=== PATIENT | female | born 1960 | race Caucasian/White ===

== ENCOUNTER 2020-04-13 18:37 | Inpatient (IN) | payer OTHER ==
[~2020-04-13] VITALS: Ht 165.1 cm; Wt 93.0 kg
--- OUTSIDE RECORDS SUMMARY | ~2020-04-13 | XMS | Encounter Summary ---
Demographics + + + | Address | [address] | | | [place] [address] | + + + | Home Phone | | + + + | Preferred Language | Unknown | + + + | Marital Status | | + + + | Christian Affiliation | Unknown | + + + | Race | Unknown | + + + | Ethnic Group | Unknown | + + + Author + + + | Author | [facility] | | | and [place] | + + + | Organization | [facility] | | | and [place] | + + + | Address | Unknown | + + + | Phone | Unavailable | + + + Support + + +---------+ + | Name | Relationship | Address | Phone | + + +---------+ + | Kavin Dos Santos | ECON | Unknown | | + + +---------+ + Care Team Providers + +------+ + | Care Meat Passer Name | Role | Phone | + +------+ + PCP | Unavailable | + +------+ + Encounter Details +--------+ + + + + | Date | Type | Department | Care Team | Description | +--------+ + + + + | 06/11/ | Hospital | [facility] | | | | 2004 | Encounter | MED CTR MP INTRA OP | | | | | | [address] | | | | | | [place] | | | | | | [address] | | | | | | [phone] | | | +--------+ + + + + Social History + +-------+ +--------+------+ | Tobacco Use | Types | Packs/Day | Years | Date | | | | | Used | | + +-------+ +--------+------+ | Never Assessed | | | | | + +-------+ +--------+------+ + + + | Sex Assigned at | Date Recorded | | | | + + + | Not on file | | + + + + + + + | Job Start Date | Occupation | Industry | + + + + | Not on file | Not on file | Not on file | + + + + + + + + | Travel History | Travel Start | Travel End | + + + + + + | No recent travel history available. | + + documented as of this encounter Plan of Treatment Not on filedocumented as of this encounter Visit Diagnoses Not on filedocumented in this encounter"
--- OUTSIDE RECORDS SUMMARY | ~2020-04-13 | XMS | Encounter Summary ---
Demographics + + + | Address | [address] | | | [place] [address] | + + + | Home Phone | | + + + | Preferred Language | Unknown | + + + | Marital Status | | + + + | Mosque Affiliation | Unknown | + + + | Race | Unknown | + + + | Ethnic Group | Unknown | + + + Author + + + | Author | [facility] | | | and [place] | + + + | Organization | [facility] | | | and [place] | [...] Team Providers + +------+ + | Care Skin Tanner Name | Role | Phone | + +------+ + PCP | Unavailable | + +------+ + Encounter Details +--------+ + + + + | Date | Type | Department | Care Team | Description | +--------+ + + + + | 11/22/ | Imaging | [facility] | Provider, | | | 2016 | Exam | MED CTR EXTERNAL | MD [address] | | | | | IMAGING [address] | [address] | | | | | [address] | [place] [address] | | | | | [place] [address] | | | | | | [phone] | | | +--------+ + + + [...] Not on filedocumented as of this encounter Procedures + +--------+ + + + | Procedure Name | Priori | Date/Time | Associated Diagnosis | Comments | | | ty | | | | + +--------+ + + + | YANETH DIGITAL | Routin | 02/13/2007 | | Results for this | | SCREENING BILATERAL | e | 4:05 PM | | procedure are in the | | | | PDT | | results section. | + +--------+ + + + documented in this encounter Results YANETH Digital Screening Bilateral (02/13/2007 4:05 PM PDT) + + | Specimen | + + | | + + + + + | Narrative | Performed At | + + + | External films | [facility] | | for comparison only - no result from [place]. | | + + + + +---------+ + + | Performing | Address | City/State/Zipcode | Phone Number | | Organization | | | | + +---------+ + + | [facility] | | | | + +---------+ + + documented in this encounter Visit Diagnoses Not on filedocumented in this encounter"
--- OUTSIDE RECORDS SUMMARY | ~2020-04-13 | XMS | Encounter Summary ---
Demographics + + + | Address | [address] | | | [place] [address] | + + + | Home Phone | | + + + | Preferred Language | Unknown | + + + | Marital Status | | + + + | Shinto Affiliation | Unknown | + + + | Race | Unknown | + + + | Ethnic Group | Unknown | + + + Author + + + | Author | [facility] | | | and [place] | + + + | Organization | [facility] | | | and [place] [...] Team Providers + +------+ + | Care Adult Parole Officer Name | Role | Phone | + +------+ + | Unknown, Doctor | PCP | | + +------+ + Encounter Details +--------+ + + + + | Date | Type | Department | Care Team | Description | +--------+ + + + + | 11/27/ | Imaging | [facility] | Provider, | | | 2017 | Exam | MED CTR EXTERNAL | MD [address] | | | | | IMAGING [address] | [address] | | | | | [address] | [place] [address] | | | | | [place] [address] | | | | | | [phone] | | | +--------+ + + + [...] + | YANETH DIGITAL | Routin | 09/21/2015 | | Results for this | | SCREENING BILATERAL | e | 3:20 PM | | procedure are in the | | | | PDT | | results section. | + +--------+ + + + documented in this encounter Results YANETH Digital Screening Bilateral (09/21/2015 3:20 PM PDT) + + | Specimen | + + | | + + + + + | Narrative | Performed At | + + + | External films | [facility] | | for comparison only - no result from [place]. | | + + + + +---------+ + + | Performing | Address | City/State/Zipcode | Phone Number | | Organization | | | | + +---------+ + + | [facility] | | | | + +---------+ + + documented in this encounter Visit Diagnoses Not on filedocumented in this encounter"
--- OUTSIDE RECORDS SUMMARY | ~2020-04-13 | XMS | Encounter Summary ---
Demographics + + + | Address | [address] | | | [place] [address] | + + + | Home Phone | | + + + | Preferred Language | Unknown | + + + | Marital Status | | + + + | Gnosticist Affiliation | Unknown | + + + | Race | Unknown | + + + | Ethnic Group | Unknown | + + + Author + + + | Author | [facility] | | | and [place] | + + + | Organization | [facility] | | | and [place] [...] Team Providers + +------+ + | Care Emergency Communications Operator Name | Role | Phone | + [...] | MED CTR EXTERNAL | MD [address] | | | | | IMAGING [address] | [address] | | | | | [address] | [place] [address] | | | | | [place] [address] | | | | | | [phone] | | | +--------+ + + + [...] + | YANETH DIGITAL | Routin | 10/05/2016 | | Results for this | | DIAGNOSTIC RIGHT | e | 10:20 AM | | procedure are in the | | | | PDT | | results section. | + +--------+ + + + documented in this encounter Results YANETH Digital Diagnostic Right (10/05/2016 10:20 AM PDT) + + | Specimen | + + | | + + + + + | Narrative | Performed At | + + + | External films | [facility] | | for comparison only - no result from [place]. | | + + + + +---------+ + + | Performing | Address | City/State/Zipcode | Phone Number | | Organization | | | | + +---------+ + + | [facility] | | | | + +---------+ + + documented in this encounter Visit Diagnoses Not on filedocumented in this encounter"
--- OUTSIDE RECORDS SUMMARY | ~2020-04-13 | XMS | Encounter Summary ---
Demographics + + + | Address | [address] | | | [place] [address] | + + + | Home Phone | | + + + | Preferred Language | Unknown | + + + | Marital Status | | + + + | Bahai Affiliation | Unknown | + + + | Race | Unknown | + + + | Ethnic Group | Unknown | + + + Author + + + | Author | [facility] | | | and [place] | + + + | Organization | [facility] | | | and [place] [...] Team Providers + +------+ + | Care Heading Saw Operator Name | Role | Phone | [...] | MED CTR EXTERNAL | MD [address] | | | | | IMAGING [address] | [address] [address] | | | | | [address] [place] | [place] [address] | | | | | [place] [address] | | | | | | [phone] | | | +--------+ + + + [...] + | YANETH DIGITAL | Routin | 10/10/2015 | | Results for this | | DIAGNOSTIC LEFT | e | 2:45 PM | | procedure are in the | | | | PST | | results section. | + +--------+ + + + documented in this encounter Results YANETH Digital Diagnostic Left (10/10/2015 2:45 PM PST) + + | Specimen | + + | | + + + + + | Narrative | Performed At | + + + | External films | [facility] | | for comparison only - no result from [place]. | | + + + + +---------+ + + | Performing | Address | City/State/Zipcode | Phone Number | | Organization | | | | + +---------+ + + | [facility] | | | | + +---------+ + + documented in this encounter Visit Diagnoses Not on filedocumented in this encounter"
--- OUTSIDE RECORDS SUMMARY | ~2020-04-13 | XMS | Encounter Summary ---
Demographics + + + | Address | [address] | | | [place] [address] | + + + | Home Phone | | + + + | Preferred Language | Unknown | + + + | Marital Status | | + + + | Anglican Affiliation | Unknown | + + + | Race | Unknown | + + + | Ethnic Group | Unknown | + + + Author + + + | Author | [facility] | | | and [place] | + + + | Organization | [facility] | | | and [place] [...] Team Providers + +------+ + | Care Child Welfare Specialist Name | Role | Phone | + [...] | | | | [address] | [place] [address] | | | | | [place] [address] | | | | | | [phone] | | | +--------+ + + + [...] + | YANETH DIGITAL | Routin | 04/23/2008 | | Results for this | | SCREENING BILATERAL | e | 11:20 AM | | procedure are in the | | | | PDT | | results section. | + +--------+ + + + documented in this encounter Results YANETH Digital Screening Bilateral (04/23/2008 11:20 AM PDT) + + | Specimen | + + | | + + + + + | Narrative | Performed At | + + + | External films | [facility] | | for comparison only - no result from [place]. | | + + + + +---------+ + + | Performing | Address | City/State/Zipcode | Phone Number | | Organization | | | | + +---------+ + + | [facility] | | | | + +---------+ + + documented in this encounter Visit Diagnoses Not on filedocumented in this encounter"
--- OUTSIDE RECORDS SUMMARY | ~2020-04-13 | XMS | Encounter Summary ---
Demographics + + + | Address | [address] | | | [place] [address] | + + + | Home Phone | | + + + | Preferred Language | Unknown | + + + | Marital Status | | + + + | Jehovah'S Witness Affiliation | Unknown | + + + | Race | Unknown | + + + | Ethnic Group | Unknown | + + + Author + + + | Author | [facility] | | | and [place] | + + + | Organization | [facility] | | | and [place] [...] Team Providers + +------+ + | Care Control Operator Flow Coat Name | Role | Phone | + [...] | MED CTR EXTERNAL | MD [address] | | | | | IMAGING [address] | [address] | | | | | [address] [place] | [place] [address] | | | | | [place] [address] | | | | | | [phone] | | | +--------+ + + + [...] for comparison only - no result from [place]. | | + + + + +---------+ + + | Performing | Address | City/State/Zipcode | Phone Number | | Organization | | | | + +---------+ + + | [facility] | | | | + +---------+ + + documented in this encounter Visit Diagnoses Not on filedocumented in this encounter"
--- OUTSIDE RECORDS SUMMARY | ~2020-04-13 | XMS | Encounter Summary ---
Demographics + + + | Address | [address] | | | [place] [address] | + + + | Home Phone | | + + + | Preferred Language | Unknown | + + + | Marital Status | | + + + | Uatsdin Affiliation | Unknown | + + + | Race | Unknown | + + + | Ethnic Group | Unknown | + + + Author + + + | Author | [facility] | | | and [place] | + + + | Organization | [facility] | | | and [place] [...] Team Providers + +------+ + | Care Signal Fitter Name | Role | Phone | + [...] | MED CTR EXTERNAL | MD [address] | | | | | IMAGING [address] | [address] | | | | | [address] [place] | [place] [address] | | | | | [place] [address] | | | | | | [phone] | | | +--------+ + + + [...] + | YANETH DIGITAL | Routin | 09/25/2016 | | Results for this | | SCREENING BILATERAL | e | 12:50 PM | | procedure are in the | | | | PDT | | results section. | + +--------+ + + + documented in this encounter Results YANETH Digital Screening Bilateral (09/25/2016 12:50 PM PDT) + + | Specimen | + + | | + + + + + | Narrative | Performed At | + + + | External films | [facility] | | for comparison only - no result from [place]. | | + + + + +---------+ + + | Performing | Address | City/State/Zipcode | Phone Number | | Organization | | | | + +---------+ + + | [facility] | | | | + +---------+ + + documented in this encounter Visit Diagnoses Not on filedocumented in this encounter"
--- OUTSIDE RECORDS SUMMARY | ~2020-04-13 | XMS | Encounter Summary ---
Demographics + + + | Address | [address] | | | [place] [address] | + + + | Home Phone | | + + + | Preferred Language | Unknown | + + + | Marital Status | | + + + | Protestant Affiliation | Unknown | + + + | Race | Unknown | + + + | Ethnic Group | Unknown | + + + Author + + + | Author | [facility] | | | and [place] | + + + | Organization | [facility] | | | and [place] | [...] Team Providers + +------+ + | Care Roustabout Pusher Name | Role | Phone | + [...] | MED CTR EXTERNAL | MD [address] | | | | | IMAGING [address] | [address] [address] | | | | | [address] | [place] [address] | | | | | [place] [address] | | | | | | [phone] | | | +--------+ + + + [...] | + +--------+ + + + | US BREAST LIMITED | Routin | 10/10/2015 | | Results for this | | LEFT | e | 3:25 PM | | procedure are in the | | | | PST | | results section. | + +--------+ + + + documented in this encounter Results US Breast Limited Left (10/10/2015 3:25 PM PST) + + | Specimen | + + | | + + + + + | Narrative | Performed At | + + + | External films | [facility] | | for comparison only - no result from [place]. | | + + + + +---------+ + + | Performing | Address | City/State/Zipcode | Phone Number | | Organization | | | | + +---------+ + + | [facility] | | | | + +---------+ + + documented in this encounter Visit Diagnoses Not on filedocumented in this encounter"
--- OUTSIDE RECORDS SUMMARY | ~2020-04-13 | XMS | Encounter Summary ---
Demographics + + + | Address | [address] | | | [place] [address] | + + + | Home Phone | | + + + | Preferred Language | Unknown | + + + | Marital Status | | + + + | Anabaptist Affiliation | Unknown | + + + | Race | Unknown | + + + | Ethnic Group | Unknown | + + + Author + + + | Author | [facility] | | | and [place] | + + + | Organization | [facility] | | | and [place] [...] Team Providers + +------+ + | Care Box Liner Name | Role | Phone | + [...] | MED CTR EXTERNAL | MD [address] | | | | | IMAGING [address] | [place] [address] | | | | | [address] [place] | [place] [address] | | | | | [place] [address] | | | | | | [phone] | | | +--------+ + + + [...] | US BREAST LIMITED | Routin | 10/05/2016 | | Results for this | | RIGHT | e | 10:45 AM | | procedure are in the | | | | PDT | | results section. | + +--------+ + + + documented in this encounter Results US Breast Limited Right (10/05/2016 10:45 AM PDT) + + | Specimen | + + | | + + + + + | Narrative | Performed At | + + + | External films | [facility] | | for comparison only - no result from [place]. | | + + + + +---------+ + + | Performing | Address | City/State/Zipcode | Phone Number | | Organization | | | | + +---------+ + + | [facility] | | | | + +---------+ + + documented in this encounter Visit Diagnoses Not on filedocumented in this encounter"
--- OUTSIDE RECORDS SUMMARY | ~2020-04-13 | XMS | Encounter Summary ---
Demographics + + + | Address | [address] | | | [place] [address] | + + + | Home Phone | | + + + | Preferred Language | Unknown | + + + | Marital Status | | + + + | Scientologist Affiliation | Unknown | + + + | Race | Unknown | + + + | Ethnic Group | Unknown | + + + Author + + + | Author | [facility] | | | and [place] | + + + | Organization | [facility] | | | and [place] [...] Team Providers + +------+ + | Care Pvc Monitor Name | Role | Phone | + [...] | | [address] | [place] [address] | | | | | [place] [address] | | | | | | [phone] | | | +--------+ + + + [...] for comparison only - no result from [place]. | | + + + + +---------+ + + | Performing | Address | City/State/Zipcode | Phone Number | | Organization | | | | + +---------+ + + | [facility] | | | | + +---------+ + + documented in this encounter Visit Diagnoses Not on filedocumented in this encounter"
--- OUTSIDE RECORDS SUMMARY | ~2020-04-13 | XMS | Encounter Summary ---
Demographics + + + | Address | [address] | | | [place] [address] | + + + | Home Phone | | + + + | Preferred Language | Unknown | + + + | Marital Status | | + + + | Scientology Affiliation | Unknown | + + + | Race | Unknown | + + + | Ethnic Group | Unknown | + + + Author + + + | Author | [facility] | | | and [place] | + + + | Organization | [facility] | | | and [place] | + [...] Team Providers + +------+ + | Care General Labor Forklift Operator Name | Role | Phone | [...] | | [address] | [place] [address] | | | | | [place] [address] | | | | | | [phone] | | | +--------+ + + + [...] + | YANETH DIGITAL | Routin | 02/10/2010 | | Results for this | | SCREENING BILATERAL | e | 1:40 PM | | procedure are in the | | | | PST | | results section. | + +--------+ + + + documented in this encounter Results YANETH Digital Screening Bilateral (02/10/2010 1:40 PM PST) + + | Specimen | + + | | + + + + + | Narrative | Performed At | + + + | External films | [facility] | | for comparison only - no result from [place]. | | + + + + +---------+ + + | Performing | Address | City/State/Zipcode | Phone Number | | Organization | | | | + +---------+ + + | [facility] | | | | + +---------+ + + documented in this encounter Visit Diagnoses Not on filedocumented in this encounter"
--- OUTSIDE RECORDS SUMMARY | ~2020-04-13 | XMS | Encounter Summary ---
Demographics + + + | Address | [address] | | | [place] [address] | + + + | Home Phone | | + + + | Preferred Language | Unknown | + + + | Marital Status | | + + + | Rastafarian Affiliation | Unknown | + + + | Race | Unknown | + + + | Ethnic Group | Unknown | + + + Author + + + | Author | [facility] | | | and [place] | + + + | Organization | [facility] | | | and [place] | [...] Team Providers + +------+ + | Care Education Associate Name | Role | Phone | + [...] | MED CTR EXTERNAL | MD [address] | | | | | IMAGING [address] | [place] | | | | | [address] [place] | [place] [address] | | | | | [place] [address] | | | | | | [phone] | | | +--------+ + + + [...] for comparison only - no result from [place]. | | + + + + +---------+ + + | Performing | Address | City/State/Zipcode | Phone Number | | Organization | | | | + +---------+ + + | [facility] | | | | + +---------+ + + documented in this encounter Visit Diagnoses Not on filedocumented in this encounter"
--- OUTSIDE RECORDS SUMMARY | ~2020-04-13 | XMS | Clinical Summary ---
Demographics + + + | Address | [address] | | | [place] [address] | + + + | Home Phone | | + + + | Preferred Language | Unknown | + + + | Marital Status | | + + + | Lutheran Affiliation | Unknown | + + + | Race | Unknown | + + + | Ethnic Group | Unknown | + + + Author + + + | Author | [facility] | | | and [place] | + + + | Organization | [facility] | | | and [place] [...] Team Providers + +------+ + | Care Electronic Equipment Maint Tech Name | Role | Phone | + +------+ + | Unknown, Doctor | PCP | | + +------+ + Allergies Not on File Medications Not on file Active Problems Not on file Social History + +-------+ +--------+------+ | Tobacco [...] recent travel history available. | + + Last Filed Vital Signs Not on file Plan of Treatment + + + + + | Health Maintenance | Due Date | Last Done | Comments | + + + + + | Vaccine: | | | | | Dtap/Tdap/Td (1 - | 1 | | | | Tdap) | | | | + + + + + | Cervical Cancer | | | | | Screening (Pap) | 0 | | | + + + + + | Vaccine: Zoster (1 | | | | | of 2) | 0 | | | + + + + + | Breast Cancer | | 09/26/2017, 09/25/2016, | | | Screening | 9 | 09/21/2015, Additional history | | | | | exists | | + + + + + | Vaccine: Influenza | | | | | (Season Ended) | 0 | | | + + + + + Results Not on filefrom Last 3 Months Insurance + +--------+ +--------+ +---------+------+ | Payer | Benefi | Subscriber | Effect | Phone | Address | Type | | | t Plan | ID | mya | | | | | | / | | Dates | | | | | | Group | | | | | | + +--------+ +--------+ +---------+------+ | [employer] | HEALTH | [id number] | 07/02/20 | [phone] | | PPO | | | NET | | 14-Pre | 1 | | | | | PPO | | sent | | | | + +--------+ +--------+ +---------+------+ + +--------+ +--------+ + + | Guarantor Name | Accoun | Relation to | Date | Phone | Billing Address | | | t Type | Patient | of | | | | | | | | | | + +--------+ +--------+ + + | Vanessa Dos Santos | Person | Self [birth year] | [address] | | | al/Fam | | 1960 | [phone] | [place] | | | sil | | | [address] (Home) | [phone] | + +--------+ +--------+ + + Advance Directives + + + + + | Type | Date Recorded | Patient | Explanation | | | | Beverage Specialist | | + + + + + | Power of | | | | | Freelance Photographer | | | | + + + + + | Advance | 12/11/2017 8:28 | | | | Directive | AM | | | + + + + +"
--- OUTSIDE RECORDS SUMMARY | ~2020-04-13 | XMS | Encounter Summary ---
Demographics + + + | Address | [address] | | | [place] [address] | + + + | Home Phone | | + + + | Preferred Language | Unknown | + + + | Marital Status | | + + + | Protestant Affiliation | Unknown | + + + | Race | Unknown | + + + | Ethnic Group | Unknown | + + + Author + + + | Author | [facility] | | | and [place] | + + + | Organization | [facility] | | | and [...] Team Providers + +------+ + | Care Engine Tester Name | Role | Phone | + [...] | MED CTR EXTERNAL | MD [address] | | | | | IMAGING [address] | [place] | | | | | [address] [place] | [place] [address] | | | | | [place] [address] | | | | | | [phone] | | | +--------+ + + + [...] + | YANETH DIGITAL | Routin | 08/11/2014 | | Results for this | | SCREENING BILATERAL | e | 10:45 AM | | procedure are in the | | | | PDT | | results section. | + +--------+ + + + documented in this encounter Results YANETH Digital Screening Bilateral (08/11/2014 10:45 AM PDT) + + | Specimen | + + | | + + + + + | Narrative | Performed At | + + + | External films | [facility] | | for comparison only - no result from [place]. | | + + + + +---------+ + + | Performing | Address | City/State/Zipcode | Phone Number | | Organization | | | | + +---------+ + + | [facility] | | | | + +---------+ + + documented in this encounter Visit Diagnoses Not on filedocumented in this encounter"
--- OUTSIDE RECORDS SUMMARY | ~2020-04-13 | XMS | Encounter Summary ---
Demographics + + + | Address | [address] | | | [place] [address] | + + + | Home Phone | | + + + | Preferred Language | Unknown | + + + | Marital Status | | + + + | Orthodox Affiliation | Unknown | + + + | Race | Unknown | + + + | Ethnic Group | Unknown | + + + Author + + + | Author | [facility] | | | and [place] | + + + | Organization | [facility] | | | and Joeyana [...] Team Providers + +------+ + | Care Final Inspector Shuttle Name | Role | Phone | + [...] | MED CTR EXTERNAL | MD Baljit [address] | | | | | IMAGING [address] | [place] | | | | | [address] [place] | [place] [address] | | | | | [place] [address] | | | | | | [phone] | | | +--------+ + + + [...] for comparison only - no result from [place]. | | + + + + +---------+ + + | Performing | Address | City/State/Zipcode | Phone Number | | Organization | | | | + +---------+ + + | [facility] | | | | + +---------+ + + documented in this encounter Visit Diagnoses Not on filedocumented in this encounter"
--- OUTSIDE RECORDS SUMMARY | ~2020-04-13 | XMS | Encounter Summary ---
Demographics + + + | Address | [address] | | | [place] [address] | + + + | Home Phone | | + + + | Preferred Language | Unknown | + + + | Marital Status | | + + + | Uatsdin Affiliation | Unknown | + + + | Race | Unknown | + + + | Ethnic Group | Unknown | + + + Author + + + | Author | [facility] | | | and [place] | + + + | Organization | [facility] | | | and [...] Team Providers + +------+ + | Care Bagel Maker Name | Role | Phone | + [...] | MED CTR EXTERNAL | MD [address]jit [address] | | | | | IMAGING [address] | [place] | | | | | [address] [place] | [place] [address] | | | | | [place] [address] | | | | | | [phone] | | | +--------+ + + + [...] + + documented in this encounter Results YNAETH Digital Screening Bilateral (09/21/2015 3:20 PM PDT) + + | Specimen | + + | | + + + + + | Narrative | Performed At | + + + | External films | [facility] | | for comparison only - no result from [place]. | | + + + + +---------+ + + | Performing | Address | City/State/Zipcode | Phone Number | | Organization | | | | + +---------+ + + | [facility] | | | | + +---------+ + + documented in this encounter Visit Diagnoses Not on filedocumented in this encounter"
--- OUTSIDE RECORDS SUMMARY | ~2020-04-13 | XMS | Encounter Summary ---
Demographics + + + | Address | [address] | | | [place] [address] | + + + | Home Phone | | + + + | Preferred Language | Unknown | + + + | Marital Status | | + + + | Yazidism Affiliation | Unknown | + + + | Race | Unknown | + + + | Ethnic Group | Unknown | + + + Author + + + | Author | [facility] | | | and [place] | + + + | Organization | [facility] | | | and [place] | [...] Team Providers + +------+ + | Care Swatch Cutter Name | Role | Phone | + [...] | MED CTR EXTERNAL | MD [address] | | | | | IMAGING [address] | [place] | | | | | [address] [place] | [place] [address] | | | | | [place] [address] | | | | | | [phone] | | | +--------+ + + + [...] + | YANETH DIGITAL | Routin | 11/12/2017 | | Results for this | | DIAGNOSTIC LEFT | e | 11:05 AM | | procedure are in the | | | | PST | | results section. | + +--------+ + + + documented in this encounter Results YANETH Digital Diagnostic Left (11/12/2017 11:05 AM PST) + + | Specimen | + + | | + + + + + | Narrative | Performed At | + + + | External films | [facility] | | for comparison only - no result from [place]. | | + + + + +---------+ + + | Performing | Address | City/State/Zipcode | Phone Number | | Organization | | | | + +---------+ + + | [facility] | | | | + +---------+ + + documented in this encounter Visit Diagnoses Not on filedocumented in this encounter"
--- OUTSIDE RECORDS SUMMARY | ~2020-04-13 | XMS | Encounter Summary ---
Demographics + + + | Address | [address] | | | [place] [address] | + + + | Home Phone | | + + + | Preferred Language | Unknown | + + + | Marital Status | | + + + | Alevism Affiliation | Unknown | + + + | Race | Unknown | + + + | Ethnic Group | Unknown | + + + Author + + + | Author | [facility] | | | and [place] | + + + | Organization | [facility] | | | and [place] | [...] Team Providers + +------+ + | Care Glass Ribbon Machine Operator Assistant Name | Role | Phone | + [...] | MED CTR EXTERNAL | MD [address] | | | | | IMAGING [address] | [place] | | | | | [address] [place] | [place] [address] | | | | | [place] [address] | | | | | | [phone] | | | +--------+ + + + [...] + | YANETH DIGITAL | Routin | 09/26/2017 | | Results for this | | SCREENING BILATERAL | e | 11:40 AM | | procedure are in the | | | | PDT | | results section. | + +--------+ + + + documented in this encounter Results YANETH Digital Screening Bilateral (09/26/2017 11:40 AM PDT) + + | Specimen | + + | | + + + + + | Narrative | Performed At | + + + | External films | [facility] | | for comparison only - no result from [place]. | | + + + + +---------+ + + | Performing | Address | City/State/Zipcode | Phone Number | | Organization | | | | + +---------+ + + | [facility] | | | | + +---------+ + + documented in this encounter Visit Diagnoses Not on filedocumented in this encounter"
--- OUTSIDE RECORDS SUMMARY | ~2020-04-13 | XMS | Encounter Summary ---
Demographics + + + | Address | [address] | | | [place] [address] | + + + | Home Phone | | + + + | Preferred Language | Unknown | + + + | Marital Status | | + + + | Adventist Affiliation | Unknown | + + + | Race | Unknown | + + + | Ethnic Group | Unknown | + + + Author + + + | Author | [facility] | | | and [place] | + + + | Organization | [facility] | | | and [...] Team Providers + +------+ + | Care Front Office Assistant Name | Role | Phone | + +------+ + | Unknown, Doctor | PCP | | + +------+ + Reason for Referral Diagnostic/Screening (Routine) +--------+--------+ + + + + | Status | Reason | Specialty | Diagnoses / | Referred By | Referred To | | | | | Procedures | Contact | Contact | +--------+--------+ + + + + | Closed | | Radiology | Diagnoses | | [facility] | | | | | Breast | Osmar, | [address] | | | | | density | Ambreen | Domen[place], | | | | | Procedures | Anaya | [place] | | | | | MRI Breast | DO Lenin | [address] | | | | | Bilateral w | [address] | Phone: | | | | | wo Contrast | [address] [place] | [phone] | | | | | | [place], [place] | Fax: | | | | | | [address] | [phone] | | | | | | Phone: | | | | | | | [phone] | | | | | | | Fax: | | | | | | | [phone] | | +--------+--------+ + + + + Reason for Visit Auth/Cert +--------+--------+ + + + + | Status | Reason | Specialty | Diagnoses / | Referred By | Referred To | | | | | Procedures | Contact | Contact | +--------+--------+ + + + + | | | | | | | +--------+--------+ + + + + Encounter Details +--------+ + + + + | Date | Type | Department | Care Team | Description | +--------+ + + + + | 12/11/ | Hospital | [facility] | Ambreen Prasad | Breast density | | 2018 | Encounter | MED CTR MRI [address] | Anaya Phelps DO | | | | | [place], | [address] | | | | | [place] [address] | [place], [place] | | | | | [phone] | [address] | | | | | | | | +--------+ + + + [...] | + +--------+ + + + | MRI BREAST BILATERAL | Routin | 12/11/2017 | Breast density | Results for this | | W WO CONTRAST | e | 9:28 AM | | procedure are in the | | | | PST | | results section. | + +--------+ + + + documented in this encounter Results MRI Breast Bilateral w wo Contrast (12/11/2017 9:28 AM PST) + + | Specimen | + + | | + + + + + | Narrative | Performed At | + + + | BILATERAL BREAST MRI WITH AND WITHOUT CONTRAST, WITH 3-D | [facility] | | REFORMATIONS, GADOLINIUM SUBTRACTION AND COMPUTER ASSISTED DIAGNOSIS, | | | 12/11/2017 8:46 AM CLINICAL HISTORY: Left breast asymmetry on | | | previous mammography without a sonographic correlate. | | | Postmenopausal, not reportedly on hormone replacement therapy. No | | | reported family history of breast cancer. COMPARISON: DIAGNOSTIC | | | LEFT MAMMOGRAM AND LEFT BREAST ULTRASOUND NOVEMBER 12, 2017, | | | BILATERAL DIGITAL SCREENING MAMMOGRAM SEPTEMBER 2017 AND MORE REMOTE | | | EXAMS TECHNIQUE: The patient was imaged in the breast coil in | | | the prone position in the 3T magnet. Axial STIR and T2 sequences | | | were acquired. Axial images were acquired precontrast with | | | sequential dynamic postcontrast acquisitions performed as well | | | following the uneventful intravenous administration of 20 cc | | | Magnevist, including high resolution sagittal views. Postcontrast, | | | subtracted axial images were then acquired with motion registration. | | | Computer assisted diagnosis utilizing CAD stream was performed. | | | Multiplanar MIP reformations were performed. Enhancement curves | | | were acquired over suspicious lesions. FINDINGS: Breast | | | composition is almost entirely fat, with minimal scattered | | | fibroglandular tissue bilaterally. There is minimal background | | | parenchymal enhancement. Within the central, slightly medial aspect | | | of the left breast, there is a 5.5 mm rounded, circumscribed nodule | | | demonstrating central fat signal consistent with the hilum of a lymph | | | node. The lesion demonstrates significant enhancement but is | | | similar in size, morphology and enhancement to a lesion more | | | posterior and lateral in the breast at the same level. These | | | correspond with small rounded asymmetries visible on multiple | | | previous mammograms, and are similar in appearance compared with | | | multiple bilateral axillary lymph nodes. Additional tiny rounded | | | foci of subthreshold and progressive, benign type enhancement are | | | present elsewhere in both breasts. No suspicious mass or | | | architectural distortion is evident. There is no abnormal cutaneous | | | or chest wall enhancement. No morphologically abnormal or | | | suspiciously enhancing axillary or internal mammary lymph node is | | | apparent. A small hiatus hernia is questioned. Imaged | | | intrathoracic and upper abdominal structures are otherwise | | | unremarkable. IMPRESSION - 1. BI-RADS CATEGORY 2, BENIGN | | | FINDINGS (BOTH BREASTS). Two enhancing nodules in the central to | | | lateral left breast demonstrate morphology consistent with | | | intramammary lymph nodes and correspond with stable asymmetries on | | | previous mammography. There is no suspicious mass or other evidence | | | of malignancy in either breast. RECOMMENDATION: Continued | | | screening mammography, due in September 2018. Dictated and Signed | | | by: Sawyer Corrales MD Electronically signed: 12/11/2017 11:45 AM | | + + + + + | Procedure Note | + + | Mike, Rad Results In - 12/11/2017 11:48 AM PST BILATERAL BREAST MRI WITH AND WITHOUT | | CONTRAST, WITH 3-D REFORMATIONS,GADOLINIUM SUBTRACTION AND COMPUTER ASSISTED DIAGNOSIS, | | 12/11/2017 8:46 AMCLINICAL HISTORY: Left breast asymmetry on previous mammography without | | asonographic correlate. Postmenopausal, not reportedly on hormone replacementtherapy. | | No reported family history of breast cancer.COMPARISON: DIAGNOSTIC LEFT MAMMOGRAM AND | | LEFT BREAST ULTRASOUND November, BILATERAL DIGITAL SCREENING MAMMOGRAM SEPTEMBER | | 2016 AND MORE REMOTE EXAMS TECHNIQUE: The patient was imaged in the breast coil in the | | prone position inthe 3T magnet. Axial STIR and T2 sequences were acquired. Axial | | images wereacquired precontrast with sequential dynamic postcontrast acquisitions | | performedas well following the uneventful intravenous administration of 20 cc | | Magnevist,including high resolution sagittal views. Postcontrast, subtracted axial | | imageswere then acquired with motion registration. Computer assisted diagnosisutilizing | | CAD stream was performed. Multiplanar MIP reformations wereperformed. Enhancement | | curves were acquired over suspicious lesions.FINDINGS: Breast composition is almost | | entirely fat, with minimal scatteredfibroglandular tissue bilaterally. There is minimal | | background parenchymalenhancement. Within the central, slightly medial aspect of the | | left breast,there is a 5.5 mm rounded, circumscribed nodule demonstrating central fat | | signalconsistent with the hilum of a lymph node. The lesion demonstrates | | significantenhancement but is similar in size, morphology and enhancement to a lesion | | moreposterior and lateral in the breast at the same level. These correspond withsmall | | rounded asymmetries visible on multiple previous mammograms, and aresimilar in | | appearance compared with multiple bilateral axillary lymph nodes. Additional tiny | | rounded foci of subthreshold and progressive, benign typeenhancement are present | | elsewhere in both breasts. No suspicious mass orarchitectural distortion is evident. | | There is no abnormal cutaneous or chestwall enhancement. No morphologically abnormal or | | suspiciously enhancingaxillary or internal mammary lymph node is apparent. A small | | hiatus hernia isquestioned. Imaged intrathoracic and upper abdominal structures are | | otherwiseunremarkable.IMPRESSION -1. BI-RADS CATEGORY 2, BENIGN FINDINGS (BOTH | | BREASTS). Two enhancing nodulesin the central to lateral left breast demonstrate | | morphology consistent withintramammary lymph nodes and correspond with stable | | asymmetries on previousmammography. There is no suspicious mass or other evidence of | | malignancy ineither breast. RECOMMENDATION: Continued screening mammography, due in | | September 2018.Dictated and Signed by: Sawyer Corrales MD Electronically signed: 12/11/2017 | | 11:45 AM | |unremarkable. | | | |IMPRESSION - | |1. BI-RADS CATEGORY 2, BENIGN FINDINGS (BOTH BREASTS). Two enhancing nodules | |in the central to lateral left breast demonstrate morphology consistent with | |intramammary lymph nodes and correspond with stable asymmetries on previous | |mammography. There is no suspicious mass or other evidence of malignancy in | |either breast. | | | |RECOMMENDATION: Continued screening mammography, due in September 2018. | | | |Dictated and Signed by: Sawyer Corrales MD | | Electronically signed: 12/11/2017 11:45 AM | + + + +---------+ + + | Performing | Address | City/State/Zipcode | Phone Number | | Organization | | | | + +---------+ + + | [facility] | | | | + +---------+ + + documented in this encounter Visit Diagnoses + + | Diagnosis | + + | Breast density Other sign and symptom in breast | + + documented in this encounter Administered Medications + +--------+ +--------+------+------+ | Medication Order | MAR | Action | Dose | Rate | Site | | | Action | Date | | | | + +--------+ +--------+------+------+ | gadopentetate (MAGNEVIST) | Given | 12/11/19 | 20 mLs | | | | injection 20 mL 20 mL, | | 18 9:18 | | | | | Intravenous, ONCE PRN, Other, | | AM PST | | | | | Starting 12/11/17 at 0917, For | | | | | | | 1 dose, MRI | | | | | | + +--------+ +--------+------+------+ +---+---+ | | | +---+---+ documented in this encounter"
--- OUTSIDE RECORDS SUMMARY | ~2020-04-13 | XMS | Encounter Summary ---
Demographics + + + | Address | [address] | | | [place] [address] | + + + | Home Phone | | + + + | Preferred Language | Unknown | + + + | Marital Status | | + + + | Mu-Ism Affiliation | Unknown | + + + | Race | Unknown | + + + | Ethnic Group | Unknown | + + + Author + + + | Author | [facility] | | | and [place] | + + + | Organization | [facility] | | | and [place] [...] Team Providers + +------+ + | Care Shot Hole Driller Name | Role | Phone | + [...] | | KAYLA LIVE | [place] [address] | | | | | [place] [address] | | | | | | [phone] | | | +--------+ + + + [...] for comparison only - no result from [place]. | | + + + + +---------+ + + | Performing | Address | City/State/Zipcode | Phone Number | | Organization | | | | + +---------+ + + | [facility] | | | | + +---------+ + + documented in this encounter Visit Diagnoses Not on filedocumented in this encounter"
--- OUTSIDE RECORDS SUMMARY | ~2020-04-13 | XMS | Encounter Summary ---
Demographics + + + | Address | [address] | | | [place] [address] | + + + | Home Phone | | + + + | Preferred Language | Unknown | + + + | Marital Status | | + + + | Denominational Affiliation | Unknown | + + + | Race | Unknown | + + + | Ethnic Group | Unknown | + + + Author + + + | Author | [facility] | | | and [place] | + + + | Organization | [facility] | | | and [...] Team Providers + +------+ + | Care Client Service Supervisor Name | Role | Phone | + [...] | | KAYLA LIVE | [place] [address] | | | | | [place] [address] | | | | | | [phone] | | | +--------+ + + + [...] for comparison only - no result from [place]. | | + + + + +---------+ + + | Performing | Address | City/State/Zipcode | Phone Number | | Organization | | | | + +---------+ + + | [facility] | | | | + +---------+ + + documented in this encounter Visit Diagnoses Not on filedocumented in this encounter"
--- OUTSIDE RECORDS SUMMARY | ~2020-04-13 | XMS | Encounter Summary ---
Demographics + + + | Address | [address] | | | [place] [address] | + + + | Home Phone | | + + + | Preferred Language | Unknown | + + + | Marital Status | | + + + | Taoism Affiliation | Unknown | + + + | Race | Unknown | + + + | Ethnic Group | Unknown | + + + Author + + + | Author | [facility] | | | and [place] | + + + | Organization | [facility] | | [...] Team Providers + +------+ + | Care Maintenance Operator Name | Role | Phone | [...] | MED CTR EXTERNAL | MD [address] | | | | | IMAGING [address] | [place] | | | | | [address] [place] | [place] [address] | | | | | [place] [address] | | | | | | [phone] | | | +--------+ + + + [...] for comparison only - no result from [place]. | | + + + + +---------+ + + | Performing | Address | City/State/Zipcode | Phone Number | | Organization | | | | + +---------+ + + | [facility] | | | | + +---------+ + + documented in this encounter Visit Diagnoses Not on filedocumented in this encounter"
--- OUTSIDE RECORDS SUMMARY | ~2020-04-13 | XMS | Encounter Summary ---
Demographics + + + | Address | [address] | | | [place] [address] | + + + | Home Phone | | + + + | Preferred Language | Unknown | + + + | Marital Status | | + + + | Sabianism Affiliation | Unknown | + + + | Race | Unknown | + + + | Ethnic Group | Unknown | + + + Author + + + | Author | [facility] | | | and [place] | + + + | Organization | [facility] | | | and [place] | [...] Team Providers + +------+ + | Care Benefits Analyst Name | Role | Phone | + [...] | Breast | Osmar, | [address] | | | | | density | Ambreen | [place], | | | | | Procedures | Anaya | [place] | | | | | MRI Breast | DO Lenin | [address] | | | | | Bilateral w | [address] | Phone: | | | | | wo Contrast | [address] [place] | [phone] | | | | | | [place], [place] | Fax: | | | | | | [address] | [phone] | | | | | | Phone: | | | | | | | [phone] | | | | | | | Fax: | | | | | | | [phone] | | +--------+--------+ + + + + [...] + + | 12/11/ | Hospital | [facility] | Ambreen Prasad | Breast density | | 2018 | Encounter | MED CTR MRI [address] | Anaya Phelps DO | | | | | [place], | [address] | | | | | [place] [address] | [place], [place] | | | | | [phone] | [address] | | | | | [...]
--- OUTSIDE RECORDS SUMMARY | ~2020-04-13 | XMS | Clinical Summary ---
Demographics + + + | Address | [address] | | | [place] [address] | + + + | Home Phone | | + + + | Preferred Language | Unknown | + + + | Marital Status | | + + + | Faith Affiliation | Unknown | + + + | Race | Unknown | + + + | Ethnic Group | Unknown | + + + Author + + + | Author | [facility] | | | and [place] | + + + | Organization | [facility] | | | and [...] Team Providers + +------+ + | Care Patient Safety Officer Name | Role | Phone | [...] +--------+ +---------+------+ | [employer] | HEALTH | [id number] | 07/02/20 | [phone] | | PPO [...] sil | | | 2 (Home) | [address] | + +--------+ +--------+ + + Advance Directives + + + + + | Type | Date Recorded | Patient | Explanation | | | | Pediatric Lpn | | + + + + + | Power of | | | | | Registered Safety Engineer | | | | + + + + + | Advance | 12/11/2017 8:28 | | | | Directive | AM | | | + + + + +"
--- OUTSIDE RECORDS SUMMARY | ~2020-04-13 | XMS | Encounter Summary ---
Demographics + + + | Address | [address] | | | [place] [address] | + + + | Home Phone | | + + + | Preferred Language | Unknown | + + + | Marital Status | | + + + | Mandaeism Affiliation | Unknown | + + + | Race | Unknown | + + + | Ethnic Group | Unknown | + + + Author + + + | Author | [facility] | | | and [place] | + + + | Organization | [facility] | | [...] Providers + +------+ + | Care Child Day Care Teacher Name | Role | Phone | + +------+ + PCP | Unavailable | + +------+ + Encounter Details +--------+ + + + + | Date | Type | Department | Care Team | Description | +--------+ + + + + | 06/11/ | Hospital | [facility] | | | | 2004 | Encounter | MED CTR MP INTRA OP | | | | | | [address] | | | | | | [place] | | | | | | [address] | | | | | | [phone] | | | +--------+ + + + [...]
--- OUTSIDE RECORDS SUMMARY | ~2020-04-13 | XMS | Encounter Summary ---
Demographics + + + | Address | [address] | | | [place] [address] | + + + | Home Phone | | + + + | Preferred Language | Unknown | + + + | Marital Status | | + + + | Jew Affiliation | Unknown | + + + | Race | Unknown | + + + | Ethnic Group | Unknown | + + + Author + + + | Author | [facility] | | | and [place] | + + + | Organization | [facility] | | | and [...] Team Providers + +------+ + | Care Soil Field Technician Name | Role | Phone | + [...] | MED CTR EXTERNAL | MD [address] | | | | | IMAGING [address] | [place] | | | | | [address] [place] | [place] [address] | | | | | [place] [address] | | | | | | [phone] | | | +--------+ + + + [...] for comparison only - no result from [place]. | | + + + + +---------+ + + | Performing | Address | City/State/Zipcode | Phone Number | | Organization | | | | + +---------+ + + | [facility] | | | | + +---------+ + + documented in this encounter Visit Diagnoses Not on filedocumented in this encounter"
--- OUTSIDE RECORDS SUMMARY | ~2020-04-13 | XMS | Encounter Summary ---
Demographics + + + | Address | [address] | | | [place] [address] | + + + | Home Phone | | + + + | Preferred Language | Unknown | + + + | Marital Status | | + + + | Sikhism Affiliation | Unknown | + + + | Race | Unknown | + + + | Ethnic Group | Unknown | + + + Author + + + | Author | [facility] | | | and Joeyana | + + + | Organization | [facility] | | | and Joeyana [...] Team Providers + +------+ + | Care Ginning Operator Name | Role | Phone | [...] | MED CTR EXTERNAL | MD [address] | | | | | IMAGING [address] | [place] | | | | | [address] | [place] [address] | | | | | [place] [address] | | | | | | [phone] | | | +--------+ + + + [...] for comparison only - no result from [place]. | | + + + + +---------+ + + | Performing | Address | City/State/Zipcode | Phone Number | | Organization | | | | + +---------+ + + | [facility] | | | | + +---------+ + + documented in this encounter Visit Diagnoses Not on filedocumented in this encounter"
--- OUTSIDE RECORDS SUMMARY | ~2020-04-13 | XMS | Encounter Summary ---
Demographics + + + | Address | [address] | | | [place] [address] | + + + | Home Phone | | + + + | Preferred Language | Unknown | + + + | Marital Status | | + + + | Hinduism Affiliation | Unknown | + + + | Race | Unknown | + + + | Ethnic Group | Unknown | + + + Author + + + | Author | [facility] | | | and Joeyana | + + + | Organization | [facility] | | | and [...] Providers + +------+ + | Care Control Room Supervisor Name | Role | Phone | [...] | MED CTR EXTERNAL | MD [address] | | | | | IMAGING [address] | [place] | | | | | [address] | [place] [address] | | | | | [place] [address] | | | | | | [phone] | | | +--------+ + + + [...] for comparison only - no result from [place]. | | + + + + +---------+ + + | Performing | Address | City/State/Zipcode | Phone Number | | Organization | | | | + +---------+ + + | [facility] | | | | + +---------+ + + documented in this encounter Visit Diagnoses Not on filedocumented in this encounter"
--- OUTSIDE RECORDS SUMMARY | ~2020-04-13 | XMS | Encounter Summary ---
Demographics + + + | Address | [address] | | | [place] [address] | + + + | Home Phone | | + + + | Preferred Language | Unknown | + + + | Marital Status | | + + + | Nondenominational Affiliation | Unknown | + + + | Race | Unknown | + + + | Ethnic Group | Unknown | + + + Author + + + | Author | [facility] | | | and Joeyana | + + + | Organization | [facility] | | | and [...] Team Providers + +------+ + | Care Lens Block Gauger Name | Role | Phone | + [...] | MED CTR EXTERNAL | MD [address] | | | | | IMAGING [address] | [place] | | | | | [address] | [place] [address] | | | | | [place] [address] | | | | | | [phone] | | | +--------+ + + + [...] | US BREAST LIMITED | Routin | 11/12/2017 | | Results for this | | LEFT | e | 11:10 AM | | procedure are in the | | | | PST | | results section. | + +--------+ + + + documented in this encounter Results US Breast Limited Left (11/12/2017 11:10 AM PST) + + | Specimen | + + | | + + + + + | Narrative | Performed At | + + + | External films | [facility] | | for comparison only - no result from [place]. | | + + + + +---------+ + + | Performing | Address | City/State/Zipcode | Phone Number | | Organization | | | | + +---------+ + + | [facility] | | | | + +---------+ + + documented in this encounter Visit Diagnoses Not on filedocumented in this encounter"
--- OUTSIDE RECORDS SUMMARY | ~2020-04-13 | XMS | Encounter Summary ---
Demographics + + + | Address | [address] | | | [place] [address] | + + + | Home Phone | | + + + | Preferred Language | Unknown | + + + | Marital Status | | + + + | Sikhism Affiliation | Unknown | + + + | Race | Unknown | + + + | Ethnic Group | Unknown | + + + Author + + + | Author | [facility] | | | and [place] | + + + | Organization | [facility] | [...] Team Providers + +------+ + | Care Human Resources Designate Name | Role | Phone | + [...] | MED CTR EXTERNAL | MD [address] | | | | | IMAGING [address] | [place] | | | | | [address] | [place] [address] | | | | | [place] [address] | | | | | | [phone] | | | +--------+ + + + [...] for comparison only - no result from [place]. | | + + + + +---------+ + + | Performing | Address | City/State/Zipcode | Phone Number | | Organization | | | | + +---------+ + + | [facility] | | | | + +---------+ + + documented in this encounter Visit Diagnoses Not on filedocumented in this encounter"
--- OUTSIDE RECORDS SUMMARY | ~2020-04-13 | XMS | Encounter Summary ---
Demographics + + + | Address | [address] | | | [place] [address] | + + + | Home Phone | | + + + | Preferred Language | Unknown | + + + | Marital Status | | + + + | Mormon Affiliation | Unknown | + + + | Race | Unknown | + + + | Ethnic Group | Unknown | + + + Author + + + | Author | [facility] | | | and [place] | + + + | Organization | [facility] | | | and [place] [...] Team Providers + +------+ + | [employer] Flatbed Truck Driver Name | Role | Phone | + [...] | MED CTR EXTERNAL | MD [address] | | | | | IMAGING [address] | [place] | | | | | [address] [place] | [place] [address] | | | | | [place] [address] | | | | | | [phone] | | | +--------+ + + + [...] for comparison only - no result from [place]. | | + + + + +---------+ + + | Performing | Address | City/State/Zipcode | Phone Number | | Organization | | | | + +---------+ + + | [facility] | | | | + +---------+ + + documented in this encounter Visit Diagnoses Not on filedocumented in this encounter"
[2020-04-14] MEDS ORDERED: FLUOXETINE HCL20 MG PO (11:47)
[2020-04-14] MEDS ORDERED: ONDANSETRON ODT8 MG PO (11:47)
[2020-04-14] MEDS ORDERED: MAGOX 400400 MG PO (13:30)
[2020-04-14] MEDS ORDERED: POTASSIUM99 M1 PO (13:30)
[2020-04-14] MEDS ORDERED: FLAX SEED OIL1000 MG PO (13:31)
[2020-04-14] MEDS ORDERED: MULTIVITAMIN W1 EAC1 PO (13:32)
[2020-04-14] MEDS ORDERED: OMEGA-31000 MG PO (13:33)
[2020-04-14] MEDS ORDERED: VITAMIN D325 MC2 PO (13:34)
--- NOTE | 2020-04-14 15:55 | EKG ---
[facility] [address] [facility] [place] [address] Signed Normal sinus rhythm Normal ECG No previous ECGs available Confirmed by ORALIA RAYMOND MD ([id number]) on 04/14/2020 3:55:02 PM Electronically Signed By: ORALIA RAYMOND MD 04/14/20 1555 PATIENT NAME: MOHSEN MATTSON Electrocardiogram DATE OF : 60 PHYSICIAN: ORALIA RAYMOND MD REPORT #: [id number] REPORT IS CONFIDENTIAL AND NOT TO BE RELEASED WITHOUT AUTHORIZATION
--- NOTE | 2020-04-15 07:35 | OR ---
[facility] [address] [place], [place] [address] Signed DATE OF OPERATION: 04/14/2020 SURGEON: Maciel Alvarenga MD PREOPERATIVE DIAGNOSIS: Ruptured appendicitis with abscess. POSTOPERATIVE DIAGNOSIS: Ruptured necrotic appendicitis with abscess. PROCEDURES: 1. Open appendectomy. 2. Partial salpingectomy. 3. Placement of a retrocecal drain. 4. Abscess cultures. ESTIMATED BLOOD LOSS: Minimal. FINDINGS: Vanessa had a short necrotic ruptured appendix with appendicitis involving the cecum, terminal ileum, sigmoid colon in the right ovary and fallopian tube. INDICATIONS: Vanessa is a 59-year-old female at 5 feet 5 inches and 92 kg. She is generally healthy. At least a week if not longer, she has been having lower abdominal pain, it is somewhat vague. She was not able to localize it very well to the left or the right. Consequently, there was some consideration she had viral gastroenteritis. However, the pain persisted if not worsen. She had been in contact with her primary care provider throughout this Coronavirus pandemic. She had been sent to our x-ray department for CT scan of abdomen and pelvis. She had a 7 cm abscess with bubbles in the right lower quadrant associated with the terminal ileum in the cecum. Consequently, I have been asked to admit her last evening as a General Surgeon on-call. Vanessa's process was quite localized, so she was not systemically ill or toxic. Her potassium was on the low side. She was little bit dehydrated, it was already getting late. We decided to admit overnight for IV hydration, replacement of the potassium, and start her on antibiotics. Our plan was then to bring her to surgery first thing this morning. I explained to Vanessa and her over the telephone the above findings. We did discuss the location and function of the appendix. We had reviewed laparoscopic versus open appendectomy. In this situation, we like a midline incision, it needs to be extended Electronically Signed By: MACIEL ALVARENGA MD 04/15/20 0735 PATIENT NAME: VANESSA MATTSON OPERATIVE REPORT DATE OF : 60 REPORT #: [id number] PHYSICIAN: MACIEL ALVARENGA MD PCP: VIVIAN LOZA MD REPORT IS CONFIDENTIAL AND NOT TO BE RELEASED WITHOUT AUTHORIZATION [facility] [address] [place] [address] Signed and so forth for visualization. I explained the expected intraop and postop course. We did review the risks including, but not limited to bleeding, infection, scarring, change in contour of the skin, damage to bowel, appendiceal stump leak, postoperative intraabdominal abscess, incisional hernias, and other unforeseen comorbidities. They had expressed understanding and wished to proceed. PROCEDURE NOTE: I met with Vanessa this morning in our preoperative area. We once again reviewed her findings. After that, we took Vanessa into the operating room. She was placed in the supine position under general endotracheal tube anesthesia. She was already on her preoperative antibiotics along with subcutaneous heparin. SCDs were utilized. Trinidad catheter was inserted with return of clear yellow urine without difficulty. She was then prepped and draped in the usual sterile fashion. We utilized a standard infraumbilical midline incision which is slightly gil than my hand. We were able to enter the abdomen without difficulty. We could easily palpate the right lower quadrant mass after induction of anesthesia. We could easily see the right colon coming down to the cecum. We followed the anterior taenia coli right down the abscess cavity and we broke up the abscess cavity with our fingertips. Copious amounts of pus were evacuated. We took deep wound cultures from the abscess cavity. We could see that the sigmoid colon was partially involved, mainly the epiploica on the colon. The right ovary was quite atrophic and we easily identified and the fallopian tube came around and the fimbriae was involved. It took a minute to divide the fimbriae from the appendix. At that point, there was not much tissue left holding the fimbriae in place. We just used cautery to divide that and about 1.5 to 2 cm of the fallopian tube was thus removed and sent off to the Pathology Department. We had washed out the cavity several times and examined it very carefully. We rotated the cecum and the terminal ileum. The mesentry to the terminal ileum quite thickened from the abscess cavity. We could see the appendix at the base of the anterior taenia coli. Her appendix appears to be very short maybe 2-1/2 at 3 cm at most. We could see the very indurated mesoappendix coming up as well. We searched very very carefully and we did not feel the appendix was divided in half. It simply appears to be a very short appendix. The area was quite indurated and inflamed, so I simply divided the appendix with cautery and over-sewed the stump with a [id number] 0 Vicryl suture. I divided the mesoappendix very slowly with the cautery and all those vessels were quite inflamed and thrombosed and there was no bleeding, whatsoever. I did open the appendix on the anti-mesenteric side with a #15 blade knife and it was quite rubbery and indurated. Our pathologist was not available at that point in the morning, so no frozen sections were obtained. After this, we brought a #10 flat Wilfrid drain to the right lower quadrant of the abdomen and underneath the cecum and into the abscess cavity. The drain was held in place at the level of skin with a 2-0 nylon suture. The cecum and bowel were to returned to the position and then the omentum was brought down over the area. The midline fascia was closed with interrupted pefrbf-ol-[id number] #1 PDS sutures. Local anesthetic was injected in the Electronically Signed By: MACIEL ALVARENGA MD 04/15/20 0735 PATIENT NAME: VANESSA MATTSON OPERATIVE REPORT DATE OF : 60 REPORT #: [id number] PHYSICIAN: MACIEL ALVARENGA MD PCP: VIVIAN LOZA MD REPORT IS CONFIDENTIAL AND NOT TO BE RELEASED WITHOUT AUTHORIZATION [facility] [address] [place] [address] Signed abdominal wall and the subcutaneous tissues. The wound was then copiously irrigated once again. We brought the dermis together with interrupted 3-0 Monocryl subcuticular stitches. Skin edges were then reapproximated with adele. Dry gauze and tape were then applied. Vanessa was awakened from anesthesia, extubated in the OR, and taken to recovery room in stable condition. Maciel Alvarenga MD ALB/MODL /[id number] cc: MD Vivian Wu MD Copies: MACIEL ALVARENGA MD, JONATHAN MD ~ Electronically Signed By: MACIEL ALVARENGA MD 04/15/20 0735 PATIENT NAME: VANESSA MATTSON OPERATIVE REPORT DATE OF : 60 REPORT #: [id number] PHYSICIAN: MACIEL ALVARENGA MD PCP: VIVIAN LOZA MD REPORT IS CONFIDENTIAL AND NOT TO BE RELEASED WITHOUT AUTHORIZATION
--- NOTE | 2020-04-20 14:47 | PATH ---
[facility] [address] [place], [place] [address] Signed THIS IS AN ADDENDUM REPORT SPECIMEN(S): A RIGHT FALLOPIAN TUBE AND FIMBRIAE SPECIMEN(S): B PROBABLE APPENDIX SPECIMEN SOURCE: A. RIGHT FALLOPIAN TUBE AND FIMBRIAE B. PROBABLE APPENDIX CLINICAL HISTORY: Lower quadrant abscess, possible ruptured appendicitis. FINAL PATHOLOGIC DIAGNOSIS: A. Right fallopian tube and fimbria: - Fallopian tube with surrounding acute serositis and fibrosis enveloping paratubal cysts. B. Probable appendix: - Appendix with marked acute appendicitis and surrounding abscess formation. - Extension of suppuration into the adjacent fallopian tube is present. COMMENT: Regarding part B, additional sections of the appendix are pending, although these findings are consistent with an acute appendicitis with surrounding abscess formation. TWK:caw:C2NR MICROSCOPIC EXAMINATION: Histologic sections of all submitted blocks are examined by light microscopy. These findings, together with the gross examination, support the pathologic diagnosis. GROSS DESCRIPTION: Two specimens are received in two containers, labeled "CW." A. The specimen, labeled "CW," and designated "right fallopian tube," per the requisition is received in formalin and consists of a segment of pink-huang to brown-huang and congested, fimbriated, fallopian tube (3.5 cm in length x 2.5 cm in diameter). The specimen is serially sectioned to reveal a pink-huang, edematous cut surface. Teacher sections are submitted cassette (A1). B. The specimen, labeled "CW," and designated "probable appendix," per the requisition is received in formalin and consists of an irregular portion of PATIENT NAME: MOHSEN MATTSON PATHOLOGY DATE OF : 60 REPORT #: [id number] PHYSICIAN: EVERTON VILLARREAL PCP: VIVIAN LOZA MD REPORT IS CONFIDENTIAL AND NOT TO BE RELEASED WITHOUT AUTHORIZATION [facility] [address] [place], [place] [address] Signed brown-huang soft tissue that is hemorrhagic, and congested, with white-huang exudate (3.4 x 3.0 x 1.3 cm). The specimen is serially sectioned to reveal a pink-huang, hemorrhagic possible disrupted appendix. Teacher sections are submitted in cassette (B1). AC (under the direct supervision of a pathologist) The Gross Description was prepared using a voice recognition system. The report was reviewed for accuracy; however, sound-alike word errors, addition and/or deletions may occur. If there is any question about this report, please contact Client Services. PERFORMING LABORATORY: The technical component was performed by [facility], [address] [place] [id number] (Welding [employer]: Loan Hernandez MD; CLIA# [id number]). Professional interpretation was performed by [facility] [address] (Welding Machine [employer]: Anil Govea DO; CLIA#: [id number]. REASON FOR ADDENDUM: To report the findings of additional sections submitted for examination. ADDENDUM COMMENT: Two additional sections were submitted on specimen B. These findings reveal no new information. There is no change in the above diagnosis. TWK:gisell Professional interpretation was performed by [facility], [place] [address] (Welding Machine [employer]: Anil Govea DO; CLIA#: [id number]. Diagnostician: Waldo Bender MD Pathologist Electronically Signed 04/20/2020 Copies: ~ PATIENT NAME: MOHSEN MATTSON PATHOLOGY DATE OF : 60 REPORT #: [id number] PHYSICIAN: [facility] PCP: VIVIAN LOZA MD REPORT IS CONFIDENTIAL AND NOT TO BE RELEASED WITHOUT AUTHORIZATION
[2020-04-21] MEDS ORDERED: AUGMENTIN 875-1 EACH PO (11:10)
[2020-04-21] MEDS ORDERED: FLAGYL500 MG PO (11:11)
[2020-04-21] MEDS ORDERED: NORCO 5-325 TA1 EACH PO (11:12)
[2020-04-21] MEDS ORDERED: IBUPROFEN600 MG PO (11:16)
--- NOTE | 2020-04-22 07:30 | DS ---
[facility] [address] [place], [place] [address] Signed ADMISSION DATE: 04/13/2020 DISCHARGE DATE: 04/21/2020 PROCEDURE: Open appendectomy. HISTORY OF PRESENT ILLNESS: Vanessa is a 59-year-old female who had at least a week of lower abdominal pain. It was both right and left side. She had been working with her primary care provider. She was sent over to the Radiology Department for a CT scan of abdomen and pelvis. She had a 7 cm fluid collection in the right lower quadrant with air bubbles. I have been asked to admit her as a general surgeon on-call. HOSPITAL COURSE: Vanessa was admitted as above and late in the evening. We started on fluids and her antibiotics. She was not systemically ill or toxic. She did have some tenderness in the right lower quadrant. The following morning, then we took her for an open appendectomy through a lower midline incision. We removed the appendix and just a small portion of the distal end of that right fallopian tube. That came back inflamed without any cancer. She had a retrocecal drain into the abscess cavity. The cultures from the abscess cavity yet to grow out any specific bacteria. She has been on cefepime and Flagyl throughout her hospital stay and has done quite well. Given her age and overall health, she has improved quite nicely. We have been able to remove her Trinidad catheter and she is diuresing well on her own. We have advanced her diet and she was doing fine yesterday when she ate breakfast; however, she was quite distended and bloated, so we kept her one more day and she has done great. She continues to pass significant amount of flatus. The abdomen now is without distention, but she is moderately obese. Incision is healing well without any local signs or symptoms of infection. The drain output was quite minimal and serous. Consequently, we removed that today and covered that drain site with dry gauze and tape. The drain site is a little erythematous from the tubing, but otherwise no infection. We have removed half of the adele of her incision. She is yet to have a bowel movement, but she knows to buy a laxative in a day or two if she needs help in that regard. At this point, she is doing well and we are going to be sending her home with her family. DISCHARGE PLANS AND MEDICATIONS: Vanessa will be discharged home with Augmentin 875 mg one tablet p.o. b.i.d. for the next 5 days. Also Flagyl 500 mg 1 p.o. t.i.d. for the next 5 days. We will give her a prescription for Upham 5/325 1-2 tablets p.o. q.4-6 hours p.r.n. for severe postoperative pain. We will dispense 25 tablets with no refills. Otherwise, she can use Tylenol, ibuprofen, or Aleve as needed for pain. She can resume her chronic Electronically Signed By: MACIEL ALVARENGA MD 04/22/20 0730 PATIENT NAME: VANESSA MATTSON DISCHARGE SUMMARY DATE OF : 60 REPORT #: [id number] PHYSICIAN: MACIEL ALVARENGA MD PCP: VIVIAN LOZA MD REPORT IS CONFIDENTIAL AND NOT TO BE RELEASED WITHOUT AUTHORIZATION [address] [address] Signed medications including the fluoxetine and multivitamin. She can remove the drain site dressing tomorrow and shower as usual. She should not immerse herself until the 4th day. After 3 or 4 days when there is no drainage from the drain site, she can discontinue applying Band-Aids. She can follow a regular diet. She can perform her activities of daily living including walking up and down stairs and showering, bathing as usual. She should not engage in any heavy pushing, pulling, or lifting over about 20 pounds. I will have her back in the office in 3-5 days for reassessment, removal of the remaining adele. She has expressed understanding and agrees to above plan. Maciel Alvarenga MD ALB/MODL /[id number] cc: MD Maciel Montoya MD Copies: VIVIAN LOZA MD, ANDREW L MD ~ Electronically Signed By: MACIEL ALVARENGA MD 04/22/20 0730 PATIENT NAME: VANESSA MATTSON DISCHARGE SUMMARY DATE OF : 60 REPORT #: [id number] PHYSICIAN: MACIEL ALVARENGA MD PCP: VIVIAN LOZA MD REPORT IS CONFIDENTIAL AND NOT TO BE RELEASED WITHOUT AUTHORIZATION
== END 2020-04-21 12:50 | disposition home or self-care (01) | DRG 340 ==
LOC: MS 18:37 → EDSTATUS 04-14 09:50 → MS 04-21 12:50
PROVIDERS: ADMIT Colon & Rectal Surgery
PROC: 0UB50ZZ Excision of Right Fallopian Tube, Open Approach (ICD-10-PCS; 2020-04-14)
PROC: 0DTJ0ZZ Resection of Appendix, Open Approach (ICD-10-PCS; principal; 2020-04-14 07:00)
DX: K35.33 Acute appendicitis with perforation, localized peritonitis, and gangrene, with abscess (principal); E86.0 Dehydration; E66.9 Obesity, unspecified; F41.8 Other specified anxiety disorders; K21.9 Gastro-esophageal reflux disease without esophagitis; E87.6 Hypokalemia; Z79.899 Other long term (current) drug therapy; Z20.828 Contact with and (suspected) exposure to other viral communicable diseases; Z68.34 Body mass index [BMI] 34.0-34.9, adult
CPT/HCPCS: 00840; 36415; 80048; 83735; 84100; 85025; 93005; 93010; 94760; 94762; C9113; G0378; J0692; J1100; J1170; J1644; J1720; J1885; J2250; J2405; J2550; J2704; J2765; J3010; J3480; J7060; J7121; U0002